=== PATIENT | female | born 2000 | race Caucasian/White ===

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

== ENCOUNTER → 2022-10-03 | Outpatient (CLI) | payer OTHER ==
--- NOTE | 2022-10-03 16:30 | US ---
EXAMINATION TYPE: Transabdominal DATE OF EXAM: 10/03/2022 1:48 PM COMPARISON: 04/14/2020 CLINICAL INDICATION: Female, 22 years old with history of Z36.89 CONFIRM DATES; early OB, dates, EXAM PERFORMED: OBTA EXAM MEASUREMENTS: GESTATIONAL AGE / DATING Physician Established: Not yet established Dates by LMP: ( 9 weeks/2 days) EDC: 05/06/2023 Dates by First Scan: No previous this is first scan Dates by Current Scan for: (9 weeks/4 days) EDC: 05/04/2023 MATERNAL ANATOMY Uterus: 10.5 x 6.9 x 6.0cm Right Ovary: 2.7 x 2.5 x 1.4cm Left Ovary: 2.5 x 2.6 x 1.7cm Post CDS / Adnexa: wnl Presence of free fluid: no Presence of corpus luteal cyst: not seen Presence of subchorionic bleed: no GESTATION / SURVEY CRL: 2.7cm (9 weeks/4 days) MSD: wnl Yolk Sac (normal less than 6mm): 0.4cm Heart Rate: 158 bpm Rhythm: Normal IUP: Viable IUP Date of LMP: 07/30/2022 Beta HcG (if available): not available IMPRESSION: Single live intrauterine gestation with ultrasound age 9 weeks 4 days.
== END | disposition home or self-care (01) ==
LOC: RADUSWWP 13:31
PROVIDERS: ATTEND Obstetrics & Gynecology
DX: Z36.89 Encounter for other specified antenatal screening (principal); Z3A.09 9 weeks gestation of pregnancy
CPT/HCPCS: 76801

== ENCOUNTER 2023-02-18 00:55 | Outpatient (CLI) | payer OTHER ==
[2023-02-18 01:55] LABS: Appearance,Urine Turbid (Clear); Bacteria,Urine Few /hpf; Bilirubin,Urine Negative (Negative); Blood,Urine Negative (Negative); Color,Urine Yellow; Glucose,Urine (UA) Negative (Negative); Ketones,Urine 1+ (Negative); Leukocyte Esterase,Urine Large (Negative); Mucus,Urine Many /hpf; Nitrite,Urine Negative (Negative); Protein,Urine 1+ (Negative); RBC,Urine 6 /hpf (0-5); Specific Gravity,Urine 1.028 (1.001-1.035); Squamous Epithelial Cell,Urine 32 /hpf (0-4); WBC,Urine 43 /hpf (0-5)
[2023-02-18] MEDS ORDERED: LACTATED RINGERS 1,000 ML IV SCH (02:15)
--- NOTE | 2023-02-18 10:28 | P.MSEPDOC ---
Presenting Problems - Arrival Data Date of Arrival on Unit: 02/18/23 Time of Arrival on Unit: 00:55 Mode of Transport: Ambulatory - Complaint OB-Reason for Admission/Chief Complaint: Pain Comment: pt of Dr. Salas, , 29 weeks and 1 day. Presents for abdominal cramping since 2300 tonight. States she was up walking and shopping most of the day and has only drank about 3/4 of a water bottle today. Concentrated urine with sediment collected. Cat 1 tracing, reactive NST. No cx palpated or per toco. Medical History - Information : 2 Para: 1 Term: 1 : 0 Abortions: Spontaneous or Elective: 0 Number of Living Children: 1 - Gestational Age Gestational Age by GREGORY (wks/days): 29 Weeks and 0 Days Review of Systems - Review of Systems Constitutional: No problems Breast: No problems ENT: No problems Cardiovascular: No problems Respiratory: No problems Gastrointestinal: No problems Genitourinary: No problems Musculoskeletal: No problems Neurological: No problems Skin: No problems Vital Signs - Temperature Temperature: 97.5 F Temperature Source: Temporal Artery Scan - Pulse Pulse Oximetery Pulse Rate: 68 Pulse Assessment Method: Automatic Cuff - Respirations Respiratory Rate: 18 Oxygen Delivery Method: Room Air O2 Sat by Pulse Oximetry: 100 - Blood Pressure Right Arm Blood Pressure: 117/57 Blood Pressure Mean: 77 Blood Pressure Source: Automatic Cuff Medical Screen Scoring - Assessment - Baby A Baseline FHR: 140 Heart Rate - NICHD Category: Category I (Normal) NST: Reactive Physician Notification - Physician Notified Physician Notified Date: 02/18/23 Physician Notified Time: 01:34 Physician: Lauryn Campuzano New Order Received: Yes - Notification Comment Comment: Spoke with Dr. Campuzano, pt of Dr. Salas, , 29 weeks and 1 day. Presents for abdominal cramping since 2300 tonight. States she was up walking and shopping most of the day and has only drank about 3/4 of a water bottle today. Concentrated urine with sediment collected. Cat 1 tracing, reactive NST. No cx palpated or per toco. Orders to send UA, orally hydrate, collect FFN and check. May dispose of FFN if cervix closed. RN to call back if UTI. Rn returned call, discussed UA results and cervix closed. ORder for IV fluid and 2g IV kefzol. will order PO abx to pt prefered pharmacy Maternal Triage Index - Maternal Triage Index Presenting for scheduled procedure w/no complaint: No - Stat/Priority 1 Stat Priority 1: No - Urgent/Priority 2 Urgent Priority 2: No - Prompt/Priority 3 Prompt Priority 3: Yes Criteria Met for Priority 3: pt of Dr. Salas, , 29 weeks and 1 day. P resents for abdominal cramping since 2300 tonight. States she was up walking and shopping most of the day and has only drank about 3/4 of a water bottle today. Concentrated urine with sediment collected. Cat 1 tracing, reactive NST. No cx palpated or per toco. Disposition - Disposition OB Disposition: Triage, Discharge to home Discharge Date: 02/18/23 Discharge Time: 03:25 I agree with the RN Medical Screening Exam: Yes Case reviewed; plan agreed upon as documented in EMR&OBIX.: Yes Diagnosis: URINARY TRACT INFECTION, SITE NOT SPECIFIED Additional Diagnoses: Dehydration
[2023-02-20 00:29] VITALS: BP 117/57; PULSE 68; RESP 18; TEMP 97.5
== END 2023-02-18 03:25 ==
LOC: FBPOP 00:55
PROVIDERS: ATTEND Obstetrics & Gynecology
DX: O23.43 Unspecified infection of urinary tract in pregnancy, third trimester (principal); Z3A.29 29 weeks gestation of pregnancy
CPT/HCPCS: 59025; 96360; 96367; 81001; 87086; G0463; J0690; 99214

== ENCOUNTER → 2023-04-07 | Outpatient (CLI) | payer OTHER ==
--- NOTE | 2023-04-10 10:53 | US ---
EXAMINATION TYPE: US OB >= 14 wk fetus DATE OF EXAM: 04/07/2023 COMPARISON: 10/03/2022 CLINICAL INDICATION: Female, 23 years old with history of O36.63X0 MATERNAL CARE FOR EXCESS HANSA WTH, TH; Growth TECHNIQUE: Transabdominal (TA) GESTATIONAL AGE / DATING Physician Established: (35 weeks/6 days) EDC: 05/06/2023 Dates by LMP: (35 weeks/6 days) EDC: 05/06/2023 Dates by First Scan: (36 weeks/1 days) EDC: 05/04/2023 Dates by Current Scan: (37 weeks/1 days) (one week more growth than expected compared to 10/03/2022) EDC: 04/27/2023 SURVEY IUP: Single PLACENTA: Anterior, calcifications and venous lakes noted PREVIA: No Previa GALILEA: 13.5 cm Normal CERVICAL LENGTH (transabdominal: norm > 3.0cm): 3.6 cm BIOMETRY PRESENTATION: Vertex BPD: 9.4 cm 38 weeks / 1 days HC: 34.3 cm 39 weeks / 4 days AC: 33.4 cm 37 weeks / 2 days FL: 7.0 cm 36 weeks / 0 days ESTIMATED WEIGHT IN GRAMS: 3186 grams ESTIMATED WEIGHT IN LBS/OZ: 7 lbs. 0 oz. WEIGHT PERCENTAGE BASED ON ESTABLISHED DATES: 87% HC/AC: 1.03 Normal FL/AC: 21 Normal HEART RATE: 123 bpm RHYTHM: Normal Strip Cleaner notes:Single, viable IUP/ Growth as above IMPRESSION: 1. Single live injured in with established gestational age of 35 weeks 6 days by LMP. Ultra sound biometry is concordant at 37 weeks 1 day (one week more than expected compared to 10/03/2022) jj cing the child at the 87th percentile for weight. 2. anatomy not assessed.
== END | disposition home or self-care (01) ==
LOC: RADUSWWP 16:33
PROVIDERS: ATTEND Obstetrics & Gynecology
DX: O36.63X0 Maternal care for excessive fetal growth, third trimester, not applicable or unspecified (principal); Z3A.36 36 weeks gestation of pregnancy
CPT/HCPCS: 76805

== ENCOUNTER 2023-04-25 13:54 | Outpatient (CLI) | payer OTHER ==
[2023-04-25 14:42] LABS: Appearance,Urine Cloudy (Clear); Bacteria,Urine Occasional /hpf; Bilirubin,Urine Negative (Negative); Blood,Urine Negative (Negative); Color,Urine Yellow; Glucose,Urine (UA) Negative (Negative); Ketones,Urine Negative (Negative); Leukocyte Esterase,Urine Large (Negative); Mucus,Urine Few /hpf; Nitrite,Urine Negative (Negative); Protein,Urine 1+ (Negative); RBC,Urine 5 /hpf (0-5); Specific Gravity,Urine 1.017 (1.001-1.035); Squamous Epithelial Cell,Urine 42 /hpf (0-4); Urobilinogen,Urine <2.0 mg/dL (<2.0); WBC,Urine 48 /hpf (0-5)
[2023-04-25 16:11] VITALS: BP 131/81; PULSE 77; RESP 17; TEMP 97.9
--- NOTE | 2023-06-27 08:19 | P.MSEPDOC ---
Presenting Problems - Arrival Data Date of Arrival on Unit: 04/25/23 Time of Arrival on Unit: 13:54 Mode of Transport: Ambulatory - Complaint OB-Reason for Admission/Chief Complaint: Pain Comment: pt presents to triage for lower back pain and pelvic pressure and tighening Medical History - Information : 2 Para: 1 Term: 1 : 0 Abortions: Spontaneous or Elective: 0 Number of Living Children: 1 - Gestational Age Gestational Age by GREGORY (wks/days): 38 Weeks and 3 Days Review of Systems - Review of Systems Constitutional: No problems Breast: No problems ENT: No problems Cardiovascular: No problems Respiratory: No problems Gastrointestinal: No problems Genitourinary: No problems Musculoskeletal: No problems Neurological: No problems Skin: No problems Vital Signs - Temperature Temperature: 97.9 F Temperature Source: Temporal Artery Scan - Pulse Right Brachial Pulse Rate: 77 Pulse Assessment Method: Automatic Cuff - Respirations Respiratory Rate: 17 Oxygen Delivery Method: Room Air - Blood Pressure Right Arm Blood Pressure: 131/81 Blood Pressure Mean: 97 Blood Pressure Source: Automatic Cuff Medical Screen Scoring - Cervical Exam Dilation (cm): 3 Effacement (%): 70 Station: -3 Membranes: Intact - Uterine Contractions Intensity: Mild Resting: Soft to palpation - Assessment - Baby A Baseline FHR: 140 Heart Rate - NICHD Category: Category I (Normal) NST: Reactive Physician Notification - Physician Notified Physician Notified Date: 04/25/23 Physician Notified Time: 14:18 Physician: Rocio Salas Order Received: Yes - Notification Comment Comment: no cervical change in an hour, reactive nst, UA and culture sent, pt discharged with follow up in office on this week Maternal Triage Index - Maternal Triage Index Presenting for scheduled procedure w/no complaint: No - Stat/Priority 1 Stat Priority 1: No - Urgent/Priority 2 Urgent Priority 2: No - Prompt/Priority 3 Prompt Priority 3: Yes Criteria Met for Priority 3: pt presents to triage for lower back pain and pelvic pressure and tighening Disposition - Disposition OB Disposition: Triage, Discharge to home, Written follow up instructions reviewed Discharge Date: 04/25/23 Discharge Time: 15:09 I agree with the RN Medical Screening Exam: Yes Case reviewed; plan agreed upon as documented in EMR&OBIX.: Yes Diagnosis: LOW BACK PAIN, UNSPECIFIED
== END 2023-04-25 15:09 | disposition home or self-care (01) ==
LOC: FBPOP 13:54
PROVIDERS: ATTEND Obstetrics & Gynecology
DX: Z53.9 Procedure and treatment not carried out, unspecified reason (principal)
CPT/HCPCS: 59025; 81001; 87086; G0463; 99213

== ENCOUNTER 2023-04-26 15:12 | Outpatient (CLI) | payer OTHER ==
[2023-04-26 16:56] VITALS: BP 138/94; PULSE 73; RESP 16; TEMP 97.5
--- NOTE | 2023-06-27 08:18 | P.MSEPDOC ---
Presenting Problems - Arrival Data Date of Arrival on Unit: 04/26/23 Time of Arrival on Unit: 15:19 Mode of Transport: Ambulatory - Complaint OB-Reason for Admission/Chief Complaint: Possible Onset of Labor Medical History - Information : 2 Para: 1 Number of Living Children: 1 - Gestational Age Gestational Age by GREGORY (wks/days): 38 Weeks and 4 Days Review of Systems - Review of Systems Constitutional: No problems Breast: No problems ENT: No problems Cardiovascular: No problems Respiratory: No problems Gastrointestinal: No problems Genitourinary: No problems Musculoskeletal: No problems Neurological: No problems Skin: No problems Vital Signs - Temperature Temperature: 97.5 F Temperature Source: Axillary - Pulse Right Sitting Brachial Pulse Rate: 73 Pulse Assessment Method: Automatic Cuff - Respirations Respiratory Rate: 16 Oxygen Delivery Method: Room Air O2 Sat by Pulse Oximetry: 99 - Blood Pressure Right Arm Sitting Blood Pressure: 138/94 Blood Pressure Mean: 108 Blood Pressure Source: Automatic Cuff Medical Screen Scoring - Cervical Exam Dilation (cm): 4 Effacement (%): 80 Station: -2 Membranes: Intact - Uterine Contractions Frequency From (mins): 5 Frequency To (mins): 10 Duration From (seconds): 60 Duration To (seconds): 80 Intensity: Moderate Resting: Soft to palpation - Assessment - Baby A Baseline FHR: 130 Heart Rate - NICHD Category: Category I (Normal) NST: Reactive Physician Notification - Physician Notified Physician Notified Date: 04/26/23 Physician Notified Time: 16:40 Physician: Jeff Ch New Order Received: Yes - Notification Comment Comment: discharge Maternal Triage Index - Maternal Triage Index Presenting for scheduled procedure w/no complaint: No - Stat/Priority 1 Stat Priority 1: No - Urgent/Priority 2 Urgent Priority 2: No - Prompt/Priority 3 Prompt Priority 3: No - Non-Urgent/Priority 4 Non-Urgent Priority 4: Yes Criteria Met for Priority 4: 38 weeks, contractions Disposition - Disposition OB Disposition: Discharge to home Discharge Date: 04/26/23 Discharge Time: 16:42 I agree with the RN Medical Screening Exam: Yes Case reviewed; plan agreed upon as documented in EMR&OBIX.: Yes Diagnosis: FALSE LABOR AT OR AFTER 37 COMPLETED WEEKS OF GESTATION
== END 2023-04-26 16:42 | disposition home or self-care (01) ==
LOC: FBPOP 15:12
PROVIDERS: ATTEND Obstetrics & Gynecology
DX: O47.1 False labor at or after 37 completed weeks of gestation (principal); Z3A.38 38 weeks gestation of pregnancy
CPT/HCPCS: 59025; G0463; 99213

== ENCOUNTER 2024-05-11 16:14 | Emergency (ER) | payer OTHER ==
--- NOTE | 2024-05-11 17:51 | ED ---
Psych HPI - General Chief Complaint: Psychiatric Symptoms Stated Complaint: Mental health Time Seen by Provider: 05/11/24 17:45 Source: patient, family, RN notes reviewed, old records reviewed Mode of arrival: ambulatory - History of Present Illness Initial Comments: This is a 24-year-old female presents with boyfriend today. Significant other in response for depression, situational depression with recent increase in stress. No current drugs or alcohol, patient does have prior inpatient psychiatric evaluation in the hospital for depression and mood disorder. MD Complaint: feels depressed -: hour(s) Associated Psychiatric Symptoms: depression History of same: Yes Quality: constant Improves With: none Worsens With: none Associated Symptoms: denies other symptoms Treatments Prior to Arrival: placed on mental health hold - Related Data Home Medications Medication Instructions Recorded Confirmed ALPRAZolam [Xanax] 0.25 mg PO DAILY PRN 05/11/24 05/11/24 Sertraline [Zoloft] 150 mg PO DAILY 05/11/24 05/11/24 Allergies Allergy/AdvReac Type Severity Reaction Status Date / Time No Known Allergies Allergy Verified 05/11/24 19:52 Review of Systems ROS Statement: Those systems with pertinent positive or pertinent negative responses have been documented in the HPI. ROS Other: All systems not noted in ROS Statement are negative. Past Medical History Past Medical History: No Reported History Additional Past Medical History / Comment(s): Patient's had 1 previous vaginal delivery of baby girl 8 lbs. 1 oz. History of Any Multi-Drug Resistant Organisms: None Reported Past Surgical History: No Surgical Hx Reported Additional Past Surgical History / Comment(s): [place] teeth. Past Psychological History: Anxiety, Bipolar, Depression Smoking Status: Never smoker Past Alcohol Use History: None Reported Past Drug Use History: None Reported - Past Family History Mother Family Medical History: No Reported History General Exam Limitations: no limitations General appearance: alert, in no apparent distress Head exam: Present: atraumatic, normocephalic, normal inspection Eye exam: Present: normal appearance, PERRL, EOMI. Absent: scleral icterus, conjunctival injection, periorbital swelling ENT exam: Present: normal exam, mucous membranes moist Neck exam: Present: normal inspection. Absent: tenderness, meningismus, lymphadenopathy Respiratory exam: Present: normal lung sounds bilaterally. Absent: respiratory distress, wheezes, rales, rhonchi, stridor Cardiovascular Exam: Present: regular rate, normal rhythm, normal heart sounds. Absent: systolic murmur, diastolic murmur, rubs, gallop, clicks GI/Abdominal exam: Present: soft, normal bowel sounds. Absent: distended, tenderness, guarding, rebound, rigid Extremities exam: Present: normal inspection, full ROM, normal capillary refill. Absent: tenderness, pedal edema, joint swelling, calf tenderness Back exam: Present: normal inspection Neurological exam: Present: alert, oriented X3, CN II-XII intact Psychiatric exam: Present: normal affect, normal mood Skin exam: Present: warm, dry, intact, normal color. Absent: rash Course Vital Signs 05/11/24 05/11/24 16:54 20:20 Temperature 97.9 F 97.6 F Pulse Rate 67 77 Respiratory 20 17 Rate Blood Pressure 132/82 112/74 O2 Sat by Pulse 98 100 Oximetry - Reevaluation(s) Reevaluation #1: Medical records reviewed Reevaluation #2: Medically clear for psychiatric evaluation Reevaluation #3: Was pt. sent in by a medical professional or institution (, PA, CRIME ANALYST, urgent care, hospital, or shelter...) When possible be specific @ -no Did you speak to anyone other than the patient for history (EMS, parent, family, police, friend...)? What history was obtained from this source @ -no Did you review nursing and triage notes (agree or disagree)? Why? @ -agree Are old charts reviewed (outside hosp., previous admission, EMS record, old EKG, old radiological studies, urgent care reports/EKG's, shelter records)? Report findings @ -yes Differential Diagnosis (chest pain, altered mental status, abdominal pain women, abdominal pain men, vaginal bleeding, weakness, fever, dyspnea, syncope, headache, dizziness, GI bleed, back pain, seizure, CVA, palpatations, mental health, musculoskeletal)? @ -prior EKG interpreted by me (3pts min.). @ -yes X-rays interpreted by me (1pt min.). @ -yes negative for acute disease CT interpreted by me (1pt min.). @ -no U/S interpreted by me (1pt. min.). @ -no What testing was considered but not performed or refused? (CT, X-rays, U/S, labs)? Why? @ -none What meds were considered but not given or refused? Why? @ -none Did you discuss the management of the patient with other professionals (professionals i.e. , PA, CRIME ANALYST, lab, RT, psych nurse, administrator social welfare, design manager, teacher, officer captain, vocational case manager)? Give summary @ -no Was smoking cessation discussed for >3mins.? @ -no Was critical care preformed (if so, how long)? @ -no Were there social determinants of health that impacted care today? How? (Homele ssness, low income, unemployed, alcoholism, drug addiction, transportation, low edu. Level, literacy, decrease access to med. care, intermediate, rehab)? @ -none Was there de-escalation of care discussed even if they declined (Discuss DNR or withdrawal of care, Hospice)? DNR status @ -no What co-morbidities impacted this encounter? (DM, HTN, Smoking, COPD, CAD, Cancer, CVA, ARF, Chemo, Hep., AIDS, mental health diagnosis, sleep apnea, morbid obesity)? @ -none Was patient admitted / discharged? Hospital course, mention meds given and route, prescriptions, significant lab abnormalities, going to OR and other pertinent info. @ - Undiagnosed new problem with uncertain prognosis? @ -no Drug Therapy requiring intensive monitoring for toxicity (Heparin, Nitro, Insulin, Cardizem)? @ -no Were any procedures done? @ -no Diagnosis/symptom? @ - Acute, or Chronic, or Acute on Chronic? @ -Acute Uncomplicated (without systemic symptoms) or Complicated (systemic symptoms)? @ -Complicated Side effects of treatment? @ -no Exacerbation, Progression, or Severe Exacerbation? @ -exacerbation Poses a threat to life or bodily function? How? (Chest pain, [place], [place], pneumonia, PE, COPD, DKA, ARF, appy, cholecystitis, CVA, Diverticulitis, Homicidal, Suicidal, threat to staff... and all critical care pts) @ -yes Reevaluation #4: Differential Mental Health Depression, anxiety, bipolar, psychosis, schizophrenia, borderline personality, situational depression, adjustment disorder, behavioral disorder, brain tumor, malingering, substance abuse, encephalopathy, medication reaction, dementia, hypothyroidism, degenerative neurologic disorder, lupus.... This is not meant to be all-inclusive list Medical Decision Making - Medical Decision Making 24 female was seen evaluate psychiatry here in the ER is okay for discharge home Disposition Clinical Impression: Depression Disposition: HOME SELF-CARE Condition: Fair Instructions (If sedation given, give patient instructions): Depression (ED) Is patient prescribed a controlled substance at d/c from ED?: No Referrals: Cristy Elmore PAC [REFERRING] - 1-2 days
[2024-05-11 20:21] VITALS: BP 112/74; PULSE 77; RESP 17; TEMP 97.6
== END 2024-05-11 20:22 | disposition home or self-care (01) ==
LOC: EC 16:14
DX: F32.A Depression, unspecified (principal)
CPT/HCPCS: 82075; 99284

== ENCOUNTER 2024-05-23 15:21 | Inpatient (IN) | payer MEDICAID, OTHER ==
--- NOTE | 2024-05-23 16:57 | ED ---
General Adult HPI - General Chief complaint: Psychiatric Symptoms Stated complaint: mental health Time Seen by Provider: 05/23/24 16:30 Source: patient, RN notes reviewed Mode of arrival: ambulatory Limitations: no limitations - History of Present Illness Initial comments: 24-year-old female presents to the emergency department for evaluation of suicidal ideation. Patient reports that last night she started feeling down and that she was feeling suicidal. She notes that she laid in bed all day. She states that she had her medications next to her on the nightstand that she was planning to take. Sister came to her house as support. She had a therapy appointment today and was advised to come to the emergency department. She does report a prior history of depression and takes Zoloft. She also has as needed Xanax. She has never been hospitalized for her mental health. Denies any homicidal thoughts. - Related Data Home Medications Medication Instructions Recorded Confirmed ALPRAZolam [Xanax] 0.25 mg PO DAILY PRN 05/11/24 05/23/24 Sertraline [Zoloft] 150 mg PO DAILY 05/11/24 05/23/24 Ondansetron Odt [Zofran Odt] 8 mg PO TID PRN 05/23/24 05/23/24 Allergies Allergy/AdvReac Type Severity Reaction Status Date / Time No Known Allergies Allergy Verified 05/23/24 17:15 Review of Systems ROS Statement: Those systems with pertinent positive or pertinent negative responses have been documented in the HPI. ROS Other: All systems not noted in ROS Statement are negative. Past Medical History Past Medical History: No Reported History Additional Past Medical History / Comment(s): Patient's had 1 previous vaginal delivery of baby girl 8 lbs. 1 oz. History of Any Multi-Drug Resistant Organisms: None Reported Past Surgical History: No Surgical Hx Reported Additional Past Surgical History / Comment(s): Colora teeth. Past Psychological History: Anxiety, Bipolar, Depression Smoking Status: Never smoker Past Alcohol Use History: None Reported Past Drug Use History: None Reported - Past Family History Mother Family Medical History: No Reported History General Exam Limitations: no limitations General appearance: alert, in no apparent distress, other (Tearful) Head exam: Present: atraumatic, normocephalic, normal inspection Eye exam: Present: normal appearance, PERRL, EOMI. Absent: scleral icterus, conjunctival injection, periorbital swelling ENT exam: Present: normal exam, mucous membranes moist Respiratory exam: Present: normal lung sounds bilaterally. Absent: respiratory distress, wheezes, rales, rhonchi, stridor Cardiovascular Exam: Present: regular rate, normal rhythm, normal heart sounds. Absent: systolic murmur, diastolic murmur, rubs, gallop, clicks GI/Abdominal exam: Present: soft. Absent: distended, tenderness, guarding, rebound, rigid Extremities exam: Present: normal inspection, full ROM, normal capillary refill. Absent: tenderness, pedal edema, joint swelling, calf tenderness Neurological exam: Present: alert, oriented X3 Psychiatric exam: Present: suicidal ideation Skin exam: Present: warm, dry, intact, normal color. Absent: rash Course Vital Signs 05/23/24 16:10 Temperature 98.4 F Pulse Rate 106 H Respiratory 17 Rate Blood Pressure 113/77 O2 Sat by Pulse 100 Oximetry Medical Decision Making - Medical Decision Making Was pt. sent in by a medical professional or institution (, PA, CUSTOMER MARKETING MANAGER, urgent care, hospital, or [facility]...) When possible be specific @ -No Did you speak to anyone other than the patient for history (EMS, parent, family, police, friend...)? What history was obtained from this source @ -No Did you review nursing and triage notes (agree or disagree)? Why? @ -I reviewed and agree with nursing and triage notes Were old charts reviewed (outside hosp., previous admission, EMS record, old EKG, old radiological studies, urgent care reports/EKG's, [facility] records)? Report findings @ -No old charts were reviewed Differential Diagnosis (chest pain, altered mental status, abdominal pain women, abdominal pain men, vaginal bleeding, weakness, fever, dyspnea, syncope, headache, dizziness, GI bleed, back pain, seizure, CVA, palpatations, mental health, musculoskeletal)? @ -Differential Mental Health Depression, anxiety, bipolar, psychosis, schizophrenia, borderline personality, situational depression, adjustment disorder, behavioral disorder, brain tumor, malingering, substance abuse, encephalopathy, medication reaction, dementia, hypothyroidism, degenerative neurologic disorder, lupus.... This is not meant to be all-inclusive list EKG interpreted by me (3pts min.). @ -None X-rays interpreted by me (1pt min.). @ -None done CT interpreted by me (1pt min.). @ -None done U/S interpreted by me (1pt. min.). @ -None done What testing was considered but not performed or refused? (CT, X-rays, U/S, labs)? Why? @ -None What meds were considered but not given or refused? Why? @ -None Did you discuss the management of the patient with other professionals (professionals i.e. DrJohn, PA, CUSTOMER MARKETING MANAGER, lab, RT, psych nurse, social problems specialist, tobacco grader, teacher, executive vice president and chief operating officer, mattress spring encaser)? Give summary @ -Management discussed with EPS who recommends inpatient mental health treatment Was smoking cessation discussed for >3mins.? @ -No Was critical care preformed (if so, how long)? @ -No Were there social determinants of health that impacted care today? How? (Homelessness, low income, unemployed, alcoholism, drug addiction, transportation, low edu. Level, literacy, decrease access to med. care, correction, rehab)? @ -No Was there de-escalation of care discussed even if they declined (Discuss DNR or withdrawal of care, Hospice)? DNR status @ -No What co-morbidities impacted this encounter? (DM, HTN, Smoking, COPD, CAD, Cancer, CVA, ARF, Chemo, Hep., AIDS, mental health diagnosis, sleep apnea, morbid obesity)? @ -Depression Was patient admitted / discharged? Hospital course, mention meds given and route, prescriptions, significant lab abnormalities, going to OR and other pertinent info. @ -Admitted. Patient presented the emergency department for evaluation of suicidal ideation. She does report a plan. I evaluated the patient and she was medically cleared for EPS evaluation. EPS evaluated the patient and inpatient treatment was recommended. Patient will be admitted to the mental health floor. She is understanding agreeable with this. Case discussed with Dr. Umanzor. Undiagnosed new problem with uncertain prognosis? @ -No Drug Therapy requiring intensive monitoring for toxicity (Heparin, Nitro, Insulin, Cardizem)? @ -No Were any procedures done? @ -No Diagnosis/symptom? @ -Suicidal ideation Acute, or Chronic, or Acute on Chronic? @ -Acute Uncomplicated (without systemic symptoms) or Complicated (systemic symptoms)? @ -complicated Side effects of treatment? @ -No Exacerbation, Progression, or Severe Exacerbation? @ -Exacerbation Poses a threat to life or bodily function? How? (Chest pain, [place], VA, pneumonia, PE, COPD, DKA, ARF, appy, cholecystitis, CVA, Diverticulitis, Homicidal, Suicidal, threat to staff... and all critical care pts) @ -Yes suicidal - Lab Data Lab Results 05/23/24 Range/Units 16:30 Urine Opiates Screen Not Detected (NotDetected) Ur Oxycodone Screen Not Detected (NotDetected) Urine Methadone Screen Not Detected (NotDetected) Ur Barbiturates Screen Not Detected (NotDetected) U Tricyclic Antidepress Not Detected (NotDetected) Ur Phencyclidine Scrn Not Detected (NotDetected) Ur Amphetamines Screen Not Detected (NotDetected) U Methamphetamines Scrn Not Detected (NotDetected) U Benzodiazepines Scrn Detected H (NotDetected) Urine Cocaine Screen Not Detected (NotDetected) U Marijuana (THC) Screen Not Detected (NotDetected) Disposition Clinical Impression: Suicidal ideation Disposition: TRANSFER TO PSYCH HOSP/UNIT Is patient prescribed a controlled substance at d/c from ED?: No Referrals: Chip Reid MD [Primary Care Provider] - 1-2 days
[2024-05-23 17:24] LABS: Amphetamine Screen,Urine Not Detected (NotDetected); Barbiturate Screen,Urine Not Detected (NotDetected); Benzodiazepines Screen,Urine Detected (NotDetected); Cocaine Screen,Urine Not Detected (NotDetected); Methadone Screen, Urine Not Detected (NotDetected); Opiate Screen,Urine Not Detected (NotDetected); Oxycodone Screen, Urine Not Detected (NotDetected); Phencyclidine Screen,Urine Not Detected (NotDetected); Tricyclic Antidepressant,Urine Not Detected (NotDetected); Urn Cannabinoid Scrn Not Detected (NotDetected)
[2024-05-23] MEDS ORDERED: MAGNESIUM HYDROXIDE 2,400 MG/30 ML CUP PO PRN (19:36)
[2024-05-23] MEDS ORDERED: IBUPROFEN 600 MG TAB PO PRN (19:36)
[2024-05-23] MEDS ORDERED: ACETAMINOPHEN TAB 325 MG TAB PO PRN (19:36)
[2024-05-23] MEDS ORDERED: MAG HYDROX/AL HYDROX/SIMETH 355 ML BOTTLE PO PRN (19:36)
[2024-05-23] MEDS ORDERED: haloperidoL 5 MG TAB PO PRN (19:38)
[2024-05-23] MEDS ORDERED: LORazepam 2 MG/ML INJ IM PRN (19:38)
[2024-05-23] MEDS ORDERED: HALOPERIDOL LACTATE 5 MG/ML 1 ML VIAL IM PRN (19:38)
[2024-05-23] MEDS ORDERED: LORazepam 1 MG TAB PO PRN (19:38)
[2024-05-23] MEDS: SERTRALINE 100 MG TAB PO SCH (21:23)
[2024-05-23 22:42] LABS: Appearance,Urine Turbid (Clear); Bilirubin,Urine Negative (Negative); Blood,Urine Negative (Negative); Color,Urine Yellow; Glucose,Urine (UA) Negative (Negative); Ketones,Urine Negative (Negative); Leukocyte Esterase,Urine Large (Negative); Mucus,Urine Many /hpf; Nitrite,Urine Negative (Negative); PH, Urine 5.5 (5.0-8.0); Protein,Urine Trace (Negative); Specific Gravity,Urine 1.028 (1.001-1.035); Squamous Epithelial Cell,Urine 2 /hpf (0-4); Urobilinogen,Urine <2.0 mg/dL (<2.0); WBC,Urine 13 /hpf (0-5)
[2024-05-24 09:01] LABS: Basophils % (A) 0 %; Eosinophils % (A) 1 %; HCT 39.1 % (34.0-46.0); HGB 12.3 gm/dL (11.4-16.0); Hypochromasia Slight; Lymphocytes # (A) 1.6 k/uL (1.0-4.8); Lymphocytes % (A) 25 %; MCH 27.4 pg (25.0-35.0); MCHC 31.5 g/dL (31.0-37.0); MCV 86.9 fL (80.0-100.0); Mean Platelet Volume 7.8; Monocytes # (A) 0.3 k/uL (0-1.0); Monocytes % (A) 4 %; Neutrophils # (A) 4.5 k/uL (1.3-7.7); Neutrophils % (A) 69 %; Platelet Count 331 k/uL (150-450); RDW 13.5 % (11.5-15.5); WBC 6.5 k/uL (3.8-10.6)
[2024-05-24 09:14] LABS: ALT 16 U/L (4-34); AST 20 U/L (14-36); African American GFR (CKD) >90 (>60 ml/min/1.73 sqM); Albumin 4.7 g/dL (3.5-5.0); Alkaline Phosphatase 76 U/L (38-126); Anion Gap 10 mmol/L; Blood Urea Nitrogen 17 mg/dL (7-17); Calcium 9.6 mg/dL (8.4-10.2); Carbon Dioxide 28 mmol/L (22-30); Chloride 101 mmol/L (98-107); Glucose 92 mg/dL (74-99); Non-African American GFR(CKD) >90 (>60 ml/min/1.73 sqM); Potassium 4.4 mmol/L (3.5-5.1); Sodium 139 mmol/L (137-145); Total Bilirubin 0.7 mg/dL (0.2-1.3)
[2024-05-24] MEDS: NICOTINE 14MG/24HR PATCH TRANSDERM SCH (09:27)
--- NOTE | 2024-05-24 12:48 | P.HP ---
Psychiatric H&P - . H&P Date: 05/24/24 History & Physical: Allergies Allergy/AdvReac Type Severity Reaction Status Date / Time No Known Allergies Allergy Verified 05/23/24 17:15 Vital Signs Temp 97.4 F L 05/24/24 09:00 Pulse 96 05/24/24 09:00 Resp 16 05/23/24 21:05 BP 120/78 05/24/24 09:00 Pulse Ox 98 05/24/24 09:00 FiO2 Intake & Output 05/23/24 05/24/24 05/24/24 18:59 06:59 18:59 Weight 76.204 kg 75.495 kg Laboratory Last Values WBC 6.5 k/uL (3.8-10.6) 05/24/24 08:13 RBC 4.50 m/uL (3.80-5.40) 05/24/24 08:13 Hgb 12.3 gm/dL (11.4-16.0) 05/24/24 08:13 Hct 39.1 % (34.0-46.0) 05/24/24 08:13 MCV 86.9 fL (80.0-100.0) 05/24/24 08:13 MCH 27.4 pg (25.0-35.0) 05/24/24 08:13 MCHC 31.5 g/dL (31.0-37.0) 05/24/24 08:13 RDW 13.5 % (11.5-15.5) 05/24/24 08:13 Plt Count 331 k/uL (150-450) 05/24/24 08:13 MPV 7.8 05/24/24 08:13 Neutrophils % 69 % 05/24/24 08:13 Lymphocytes % 25 % 05/24/24 08:13 Monocytes % 4 % 05/24/24 08:13 Eosinophils % 1 % 05/24/24 08:13 Basophils % 0 % 05/24/24 08:13 Neutrophils # 4.5 k/uL (1.3-7.7) 05/24/24 08:13 Lymphocytes # 1.6 k/uL (1.0-4.8) 05/24/24 08:13 Monocytes # 0.3 k/uL (0-1.0) 05/24/24 08:13 Eosinophils # 0.0 k/uL (0-0.7) 05/24/24 08:13 Basophils # 0.0 k/uL (0-0.2) 05/24/24 08:13 Hypochromasia Slight 05/24/24 08:13 Sodium 139 mmol/L (137-145) 05/24/24 08:13 Potassium 4.4 mmol/L (3.5-5.1) 05/24/24 08:13 Chloride 101 mmol/L (98-107) 05/24/24 08:13 Carbon Dioxide 28 mmol/L (22-30) 05/24/24 08:13 Anion Gap 10 mmol/L 05/24/24 08:13 BUN 17 mg/dL (7-17) 05/24/24 08:13 Creatinine 0.79 mg/dL (0.52-1.04) 05/24/24 08:13 Est GFR (CKD-EPI)AfAm >90 (>60 ml/min/1.73 sqM) 05/24/24 08:13 Est GFR (CKD-EPI)NonAf >90 (>60 ml/min/1.73 sqM) 05/24/24 08:13 Glucose 92 mg/dL (74-99) 05/24/24 08:13 Calcium 9.6 mg/dL (8.4-10.2) 05/24/24 08:13 Total Bilirubin 0.7 mg/dL (0.2-1.3) 05/24/24 08:13 AST 20 U/L (14-36) 05/24/24 08:13 ALT 16 U/L (4-34) 05/24/24 08:13 Alkaline Phosphatase 76 U/L (38-126) 05/24/24 08:13 Total Protein 8.0 g/dL (6.3-8.2) 05/24/24 08:13 Albumin 4.7 g/dL (3.5-5.0) 05/24/24 08:13 TSH 3.570 mIU/L (0.465-4.680) 05/24/24 08:13 Urine Color Yellow 05/23/24 21:00 Urine Appearance Turbid (Clear) H 05/23/24 21:00 Urine pH 5.5 (5.0-8.0) 05/23/24 21:00 Ur Specific [place] 1.028 (1.001-1.035) 05/23/24 21:00 Urine Protein Trace (Negative) H 05/23/24 21:00 Urine Glucose (UA) Negative (Negative) 05/23/24 21:00 Urine Ketones Negative (Negative) 05/23/24 21:00 Urine Blood Negative (Negative) 05/23/24 21:00 Urine Nitrite Negative (Negative) 05/23/24 21:00 Urine Bilirubin Negative (Negative) 05/23/24 21:00 Urine Urobilinogen <2.0 mg/dL (<2.0) 05/23/24 21:00 Ur Leukocyte Esterase Large (Negative) H 05/23/24 21:00 Urine WBC 13 /hpf (0-5) H 05/23/24 21:00 Ur Squamous Epith Cells 2 /hpf (0-4) 05/23/24 21:00 Urine Mucus Many /hpf (None) H 05/23/24 21:00 Urine HCG, Qual Not Detected (Not Detectd) 05/23/24 21:00 Urine Opiates Screen Not Detected (NotDetected) 05/23/24 16:30 Ur Oxycodone Screen Not Detected (NotDetected) 05/23/24 16:30 Urine Methadone Screen Not Detected (NotDetected) 05/23/24 16:30 Ur Barbiturates Screen Not Detected (NotDetected) 05/23/24 16:30 U Tricyclic Antidepress Not Detected (NotDetected) 05/23/24 16:30 Ur Phencyclidine Scrn Not Detected (NotDetected) 05/23/24 16:30 Ur Amphetamines Screen Not Detected (NotDetected) 05/23/24 16:30 U Methamphetamines Scrn Not Detected (NotDetected) 05/23/24 16:30 U Benzodiazepines Scrn Detected (NotDetected) H 05/23/24 16:30 Urine Cocaine Screen Not Detected (NotDetected) 05/23/24 16:30 U Marijuana (THC) Screen Not Detected (NotDetected) 05/23/24 16:30 SARS-CoV-2 (PCR) Not Detected (Not Detectd) 05/23/24 18:13 05/24/24 11:41 IDENTIFYING DATA: Patient is a 24-year-old female, currently she has 2 kids she lives in a house she lives with her 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 Pt was tearful and spoke about how she wants to get better and doesn't want to feel angry. Pt spoke about her therapy and setting goals for this week and how she is reading a book that her doctor recommended. Pt states that she has struggled with "high highs and low lows" for years. She states that "I love my so much and then I hate him". Pts states that she has not been nice to him and she yells and screams at him and uses "low blows". He told her today that he is numb and over it all. This led to her making suicidal comments. They both spoke about the option of couples therapy. Pt denies any hx of suicide attempts and denies any plan, access, or intent. Pt was able to contract for safety. Pt is goal and future oriented. Pt DENIES HI, Hallucinations, or delusions. RN spoke with pt about the use of healthy coping skills and examples of that, pt was also provided with a list of coping skills. They deny access to any guns besides a pellet gun which they were informed to lock up. Pt denies substance use. 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 Pt states she is eating slightly more than normal, she is sleeping but feels tired, she is caring for her ADLS. 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 She sees a therapist once a week, a case packer monthly, and a prescriber every 2 months. Pt spoke about her prescriber offering the option of DBT. She states that she would be willing to do so. RN emailed [facility] treatment team and [facility] team for follow up tomorrow, 05/12/24. Pt is not a current harm to self or others. RN informed pt to return to the ER if her symptoms are worsen. F/U with [facility] recommended. 05/23/24: Upon assessment pt was tearful pt states that [facility] did reach out about starting a new group therapy but that does not start until June 06. She states that since the last ER visit she has had increased depression. Increased SI with now a plan to OD on her Zoloft. Pt states that she was googling how much zoloft would she have to take to . Pt feels now she is unable to be left alone and worries she will kill herself. She admits to increase in negative thoughts and being more labile the last few days. Pt is not eating much and not caring for her basic needs. She is sleeping okay. She mentioned that she was on Vrylar up until about Mar and since being off she has noticed her decline. She states that she takes her Zoloft daily. Pt states since 05/11/24 she has not drank any etoh. Unable to safety plan with pt. Pt is a risk to her self." Patient was seen today agreeable to speak to chart writer in the office. She claims that yesterday she "could not get out of bed" and states that she was feeling fairly depressed. Claims that she was having "crappy thoughts" and relayed that they were mainly thoughts of self-harm suicidal thoughts plan to overdose on her medications. Claims that she has had similar episodes in the past over 2 and half years ago after her child was born. Claims that she went to a therapist appointment and they told her to come to the hospital. States that the suicidal thoughts have been happening for the past couple of days, claims that she has been having increase in depression increase in anxiety. States that she was fairly tearful, did relay that she has episodes of mood changes and likely hypomanic episodes where she feels like she has a lot of energy does not need to sleep which typically last 2 to 3 days. She claims that her sleep is improving, appetite is fair. Patient denies any suicidal or homicidal ideations intent or plan. At this time patient denies any auditory or visual hallucinations. Patient denies any current flight of ideas racing thoughts and increased in goal directed behavior. Patient admits to using nicotine vape products. Denies any other recreational drug use PAST PSYCHIATRIC HISTORY: Patient has a history of anxiety, bipolar disorder, possible personality disorder. She claims that she is currently on Xanax as needed and Zoloft at nighttime. Claims that she was previously on Vraylar ho wever this was discontinued by her psychiatrist 3 weeks ago. Patient denies any previous psychiatric hospitalizations. States that she follows up with Dr. Aldana at [facility]. Patient denies any history of suicide attempts in the past. PMH: as per ER note ALLERGIES: as per EMR CHEMICAL DEPENDENCY HISTORY: as per HPI FAMILY PSYCHIATRIC/SUBSTANCE USE HISTORY: Denies SOCIAL HISTORY: Patient was born and raised in [facility] [facility]. Claims that she completed high school and did some college. States that she is she has 2 kids. 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 Denies any legal history. MENTAL STATUS EXAM: General Appearance: Patient appears to be has a nose ring, stated age is alert, directable, and attempts to cooperate. Patient appears to have fair hygiene and grooming. Behavior: Patient is seated without any agitated behavior. Attempts to cooperate Speech: Patient's speech is fluent and nonpressured. Mood/Affect: Patient reports their mood is depressed, affect is congruent and constricted. Suicidality/Homicidality: Patient denies having any homicidal ideation intent or plan. Denies any suicidal ideations intent or plan Perceptions: Patient denies any visual hallucinations and denies any auditory hallucinations Though content/process: There is no evidence of any delusional thought content and thought process is linear and goal-directed. Memory and concentration: AOX3, grossly intact for the purposes of this session. Can spell "WORLD" backwards Judgment and insight: Poor STRENGTHS/WEAKNESSES: strength is that patient is resilient. Weakness is that patient has home stressors. INTELLECT: Average IMPRESSIONS: bipolar disorder, current episode depressed Anxiety disorder unspecified Nicotine dependence PLAN: -Patient is admitted under voluntary status to [facility] for stabilization of psychiatric symptoms and safety. Patient has signed adult voluntary form and has signed medication consent and is placed in patient's chart. -Medications : Zoloft 100 mg nightly for mood/anxiety, lithium started at 150 mg nightly with plan to increase to 300 mg starting tomorrow night for mood stabilization/suicidal thoughts -Ativan and Haldol PRN for agitation/aggression -Patient was informed of the risks, benefits and side effects of the medications and patient verbally consented to taking the medications. Patient signed med consent form and was placed in chart. Patient was offered medication information and accepted it -Internal Medicine consult to perform medical evaluation and physical. -NRT -nicotine patch -SW on board for discharge planning. Encourage patient to participate in groups to work on coping skills.
--- NOTE | 2024-05-24 16:05 | P.MDCNMH ---
History of Present Illness H&P Date: 05/24/24 This is a pleasant 24-year-old female who presented to the emergency department with increased depression and suicidal ideation. Patient reports she has been feeling a little more depressed lately and had thoughts of suicide. Patient reports she follows with Dr. Reid in the outpatient setting with a history of anxiety, bipolar, depression reports she vapes with nicotine and denies any other illicit drug use or alcohol use. Patient does follow with [facility] outpatient and actually did have an appointment with her psychiatrist and was told to come to the ER for further evaluation. On exam patient is afebrile with no reports of chest pain or shortness of breath. Patient reports to tolerating diet and denies any nausea or vomiting. Labs reviewed with a white count of 6.5, hemoglobin is 12.3, platelets 331, sodium 139 with a potassium of 4.4, BUN 17 with a creatinine 0.79, hemoglobin A1c is 5.1, TSH 3.50, urine showing some mild white count of 13 although patient is denying any pain, burning, or frequency with urination. Patient urine drug screen was positive for benzos of which she does take as needed Xanax and Zoloft, COVID testing was negative. Patient was voluntarily admitted to [facility] for further psychiatric evaluation. REVIEW OF SYSTEMS: CONSTITUTIONAL: No fever, no malaise, reports of fatigue. HEENT: No recent visual problems or hearing problems. Denied any sore throat. CARDIOVASCULAR: No chest pain, orthopnea, PND, no palpitations, no syncope. PULMONARY: No shortness of breath, no cough, no hemoptysis. GASTROINTESTINAL: No diarrhea, no nausea, no vomiting, no abdominal pain. NEUROLOGICAL: No headaches, no weakness, no numbness. HEMATOLOGICAL: Denies any bleeding or petechiae. GENITOURINARY: Denies any burning micturition, frequency, or urgency. MUSCULOSKELETAL/RHEUMATOLOGICAL: Denies any joint pain, swelling, or any muscle pain. ENDOCRINE: Denies any polyuria or polydipsia. The rest of the 14-point review of systems is negative. PHYSICAL EXAMINATION: GENERAL: The patient is alert and oriented x3, appears depressed on exam with flat affect. Well developed, well nourished. HEENT: Pupils are round and equally reacting to light. EOMI. No scleral icterus. No conjunctival pallor. Normocephalic, atraumatic. No pharyngeal erythema. No thyromegaly. CARDIOVASCULAR: S1 and S2 present. No murmurs, rubs, or gallops. PULMONARY: Chest is clear to auscultation, no wheezing or crackles. ABDOMEN: Soft, nontender, nondistended, normoactive bowel sounds. No palpable organomegaly. MUSCULOSKELETAL: No joint swelling or deformity. EXTREMITIES: No cyanosis, clubbing, or pedal edema. NEUROLOGICAL: Gross neurological examination did not reveal any focal deficits. SKIN: No rashes. Assessment: Depression with suicidal ideation History of anxiety/bipolar/depression Vapes with nicotine GI prophylaxis Full code Plan: Patient was voluntarily admitted to [address] unit for further psychiatric evaluation for increased depression with suicidal ideation Patient follows with [facility] outpatient and home medications reviewed and resumed as appropriate Labs reviewed and within normal limits Encouraged increased activity as tolerated with group therapy sessions, compliance with medications, and psychiatric evaluation Thank you kindly for this consultation. Please do not hesitate to contact medicine with questions and concerns The impression and plan of care has been dictated by Brianda Lyons, Nurse Practitioner as directed. Dr. Xiomara MD I have performed a history and examination and MDM of this patient, discussed the same with the dictator, and agree with the dictator's assessment and plan as written ,documented as a scribe. Based on total visit time, I have performed more than 50% of the visit. Past Medical History Past Medical History: No Reported History Additional Past Medical History / Comment(s): Patient's had 1 previous vaginal delivery of baby girl 8 lbs. 1 oz. History of Any Multi-Drug Resistant Organisms: None Reported Past Surgical History: No Surgical Hx Reported Additional Past Surgical History / Comment(s): [place] teeth. Past Anesthesia/Blood Transfusion Reactions: No Reported Reaction Past Psychological History: Anxiety, Bipolar, Depression Smoking Status: Never smoker Past Alcohol Use History: None Reported Past Drug Use History: None Reported - Past Family History Mother Family Medical History: No Reported History Medications and Allergies Home Medications Medication Instructions Recorded Confirmed Type ALPRAZolam [Xanax] 0.25 mg PO DAILY PRN 05/11/24 05/23/24 History Sertraline [Zoloft] 150 mg PO DAILY 05/11/24 05/23/24 History Ondansetron Odt [Zofran Odt] 8 mg PO TID PRN 05/23/24 05/23/24 History Allergies Allergy/AdvReac Type Severity Reaction Status Date / Time No Known Allergies Allergy Verified 05/23/24 17:15 Physical Exam Vitals: Vital Signs Temp Pulse Pulse Resp BP BP Pulse Ox 05/24/24 09:00 97.4 F L 96 120/78 98 05/23/24 21:05 97.6 F 78 16 121/76 99 05/23/24 20:23 74 18 116/79 97 05/23/24 16:10 98.4 F 106 H 17 113/77 100 Intake and Output 05/23/24 05/24/24 05/24/24 22:59 06:59 14:59 Other: Weight 75.495 kg Cranial Nerve Examination - Cranial Nerves Cranial Nerve I- Olfactory: Intact Cranial Nerve II- Optic: Intact Cranial Nerve III- Oculomotor: Intact Cranial Nerve IV- Trochlear: Intact Cranial Nerve V- Trigeminal: Intact Cranial Nerve - Abducens: Intact Cranial Nerve VII- Facial: Intact Cranial Nerve VIII- Auditory: Intact Cranial Nerve IX- Glossopharyngeal: Intact Cranial Nerve X- Vagus: Intact Cranial Nerve XI- Accessory: Intact Cranial Nerve XII- Hypoglossal: Intact Results CBC & Chem 7: 05/24/24 08:13 05/24/24 08:13 Labs: Abnormal Lab Results - Last 24 Hours (Table) 05/23/24 05/23/24 Range/Units 16:30 21:00 Urine Appearance Turbid H (Clear) Urine Protein Trace H (Negative) Ur Leukocyte Esterase Large H (Negative) Urine WBC 13 H (0-5) /hpf Urine Mucus Many H (None) /hpf U Benzodiazepines Scrn Detected H (NotDetected)
[2024-05-24] MEDS: ONDANSETRON ODT 8 MG TAB.RAPDIS PO PRN (21:11)
[2024-05-24] MEDS: LITHIUM CARBONATE 150 MG CAP PO ONE (21:11)
[2024-05-24] MEDS: SERTRALINE 100 MG TAB PO SCH (21:11)
--- NOTE | 2024-05-25 10:24 | P.PN ---
Progress Note - Text Progress Note Date: 05/25/24 Interval history: Patient was seen in the [facility] and was directable and agreeable to speak with contract technical writer. Patient was tearful, stated she had just gotten off the phone with her daughter and that she missed her children. She states having an upcoming spring break trip next week that she is hopeful to attend to, goal oriented. She states her plans on visiting her today during visitations. She has been sleeping well. At this time patient denies any suicidal or homicidal ideations intent or plan. Denies any auditory or visual hallucinations. Patient denies any side effects from the medications and has been compliant with meds. Mental status exam: General Appearance: Patient appears to be stated age is alert, directable, and cooperative. Behavior: No agitated behavior. Patient is calm and directable. She is tearful Speech: Patient's speech is fluent and nonpressured. Mood/Affect: Mood is improving mildly, affect is congruent and constricted. Suicidality/Homicidality: Patient denies having any suicidal or homicidal ideation intent or plan. Perceptions: Patient denies any auditory or visual hallucinations. Though content/process: There is no evidence of any delusional thought content and thought process is linear and goal-directed. Memory and concentration: AOX3, grossly intact for the purposes of this session Judgment and insight: improving mildly Assessment/Plan: Continue with current diagnosis. Patient continues to meet criteria for inpatient psychiatric admission for symptom stabilization and safety. Patient will be maintained on current psychotropic medication regimen. Monitor for medication compliance and for any psychotropic medication side e ffects. Will continue to monitor ongoing response to treatment. Encouraged participation in milieu.
[2024-05-25] MEDS: LITHIUM CARBONATE 300 MG CAP PO SCH (20:37)
--- NOTE | 2024-05-26 10:23 | P.PN ---
Progress Note - Text Progress Note Date: 05/26/24 Interval history: Patient was seen in group and was directable and agreeable to speak with sports writer. Patient displays bright affect, future oriented. She states sleeping well overnight and expressed no concerns. She mentions a history of anxiety related to being nausea and thus she has been taking Zofran as a precaution however this was discouraged given the possibility of prolonging QTc as patient is also on psychotropic medications. She was encouraged to refrain from taking this tonight to see if she even has nausea which she agreed. At this time patient denies any suicidal or homicidal ideations intent or plan. Denies any auditory or visual hallucinations. Patient denies any side effects from the medications and has been compliant with meds. Mental status exam: General Appearance: Patient appears to be stated age is alert, directable, and cooperative. Behavior: No agitated behavior. Patient is calm and directable Speech: Patient's speech is fluent and nonpressured. Mood/Affect: Mood is improving mildly, affect is congruent and full range, reactive Suicidality/Homicidality: Patient denies having any suicidal or homicidal ideation intent or plan. Perceptions: Patient denies any auditory or visual hallucinations. Though content/process: There is no evidence of any delusional thought content and thought process is linear and goal-directed. Memory and concentration: AOX3, grossly intact for the purposes of this session Judgment and insight: improving mildly Assessment/Plan: Continue with current diagnosis. Patient continues to meet criteria for inpatient psychiatric admission for symptom stabilization and safety. Patient will be maintained on current psychotropic medication regimen. Monitor for medication compliance and for any psychotropic medication side effects. Will continue to monitor ongoing response to treatment. Encouraged participation in milieu.
[2024-05-27 08:36] VITALS: RESP 16
--- NOTE | 2024-05-27 10:24 | P.PN ---
Progress Note - Text Progress Note Date: 05/27/24 Interval history: Patient was seen in group and was directable and agreeable to speak with keno writer / runner. Patient claims that she is feeling a bit better today, claims that her mood and anxiety been improving. States that she feels more future oriented today, states that she is tolerating the lithium fairly well. Not reporting any side effects at this time. States that she is sleeping about 9 hours a night. Has been going to some groups, eating fairly well. Has been speaking with her over the phone. At this time patient denies any suicidal or homicidal ideations intent or plan. Denies any auditory or visual hallucinations. Patient denies any side effects from the medications and has been compliant with meds. Mental status exam: General Appearance: Patient appears to be stated age is alert, directable, and cooperative. She appears brighter today Behavior: No agitated behavior. Patient is calm and directable Speech: Patient's speech is fluent and nonpressured. Mood/Affect: Mood is improving mildly, affect is congruent and full range, reactive, improving mildly Suicidality/Homicidality: Patient denies having any suicidal or homicidal ideation intent or plan. Perceptions: Patient denies any auditory or visual hallucinations. Though content/process: There is no evidence of any delusional thought content and thought process is linear and goal-directed. Memory and concentration: AOX3, grossly intact for the purposes of this session Judgment and insight: improving mildly Assessment/Plan: Continue with current diagnosis. Patient continues to meet criteria for inpatient psychiatric admission for symptom stabilization and safety. Patient will be maintained on current psychotropic medication regimen. Monitor for medication compliance and for any psychotropic medication side effects. Will continue to monitor ongoing response to treatment. Encouraged participation in milieu. Will obtain a lithium level tomorrow morning. Likely discharge tomorrow back home
[2024-05-28 07:56] VITALS: BP 115/73; PULSE 72; TEMP 98.7
--- NOTE | 2024-05-28 10:31 | P.DS ---
Providers Date of admission: 05/23/24 19:21 Expected date of discharge: 05/28/24 Attending physician: Ruben Duong MD Consults: 05/23/24 19:36 Consult Physician Routine Consulting Provider: Pranav Valdez Consult Reason/Comments: H&P Do you want consulting provider notified?: Yes Primary care physician: Cihp Reid - Discharge Diagnosis(es) (1) Bipolar disorder current episode depressed Current Visit: Yes Status: Acute Priority: High (2) Anxiety disorder Current Visit: Yes Status: Acute Priority: High (3) Nicotine dependence Current Visit: Yes Status: Acute Priority: Low Hospital Course: Admission HPI: Admission note was completed by insurance underwriter sales "Patient is a 24-year-old female, currently she has 2 kids she lives in a house she lives with her 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 Patient presented to the hospital yesterday for depression and suicidal ideations, she was evaluated by EPS nurse and according to note "Pt brought self to ER for having SI after having a verbal altercation with her . Pt was tearful and spoke about how she wants to get better and doesn't want to feel angry. Pt spoke about her therapy and setting goals for this week and how she is reading a book that her doctor recommended. Pt states that she has struggled with "high highs and low lows" for years. She states that "I love my so much and then I hate him". Pts states that she has not been nice to him and she yells and screams at him and uses "low blows". He told her today that he is numb and over it all. This led to her making suicidal comments. They both spoke about the option of couples therapy. Pt denies any hx of suicide attempts and denies any plan, access, or intent. Pt was able to contract for safety. Pt is goal and future oriented. Pt DENIES HI, Hallucinations, or delusions. RN spoke with pt about the use of healthy coping skills and examples of that, pt was also provided with a list of coping skills. They deny access to any guns besides a pellet gun which they were informed to lock up. Pt denies substance use. 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 Pt states she is eating slightly more than normal, she is sleeping but feels tired, she is caring for her ADLS. 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 She sees a therapist once a week, a rehabilitation caseworker monthly, and a prescriber every 2 months. Pt spoke about her prescriber offering the option of DBT. She states that she would be willing to do so. RN emailed [facility] treatment team and [facility] team for follow up tomorrow, 05/12/24. Pt is not a current harm to self or others. RN informed pt to return to the ER if her symptoms are worsen. F/U with [facility] recommended. 05/23/24: Upon assessment pt was tearful pt states that [facility] did reach out about starting a new group therapy but that does not start until June 06. She states that since the last ER visit she has had increased depression. Increased SI with now a plan to OD on her Zoloft. Pt states that she was googling how much zoloft would she have to take to . Pt feels now she is unable to be left alone and worries she will kill herself. She admits to increase in negative thoughts and being more labile the last few days. Pt is not eating much and not caring for her basic needs. She is sleeping okay. She mentioned that she was on Vrylar up until about Mar and since being off she has noticed her decline. She states that she takes her Zoloft daily. Pt states since 05/11/24 she has not drank any etoh. Unable to safety plan with pt. Pt is a risk to her self." Patient was seen today agreeable to speak to insurance underwriter sales in the office. She claims that yesterday she "could not get out of bed" and states that she was feeling fairly depressed. Claims that she was having "crappy thoughts" and relayed that they were mainly thoughts of self-harm suicidal thoughts plan to overdose on her medications. Claims that she has had similar episodes in the past over 2 and half years ago after her child was born. Claims that she went to a therapist appointment and they told her to come to the hospital. States that the suicidal thoughts have been happening for the past couple of days, claims that she has been having increase in depression increase in anxiety. States that she was fairly tearful, did relay that she has episodes of mood changes and likely hypomanic episodes where she feels like she has a lot of energy does not need to sleep which typically last 2 to 3 days. She claims that her sleep is improving, appetite is fair. Patient denies any suicidal or homicidal ideations intent or plan. At this time patient denies any auditory or visual hallucinations. Patient denies any current flight of ideas racing thoughts and increased in goal directed behavior. Patient admits to using nicotine vape products. Denies any other recreational drug use" Hospital course: Upon admission to the unit patient was directable and agreeable to commence treatment and signed adult voluntary form. Patient was initially tearful, depressed and anxious however with time and treatment patient got along well with other patients on the unit and followed unit protocol. Patient was compliant with the medications and denied any side effects throughout hospital course. Patient was started on Zoloft decreased down to a dose of 100 mg nightly for mood/anxiety, lithium increased to dose of 300 mg nightly for mood stabilization/suicidal thoughts. Patient spoke of her stressors and engaged in therapy both group/activity therapy. Patient was also seen by medical team for history and physical exam. Throughout the course of the hospitalization patient gradually improved with regards to mood, anxiety, suicidal thoughts, mood lability, sleep and became more future oriented with improved insight and judgment. On the day of discharge patient denied any suicidal or homicidal ideations intent or plan denied any auditory or visual hallucinations. Patient endorsed wanting to live for their health and family. The patient denied any access to guns or weapons. Patient denied any paranoia and did not endorse any delusions. Patient does not have a significant history of substance abuse and was counseled on abstaining from all substances including alcohol and marijuana. Patient was also counseled on the medications and need for regular compliance and was encouraged to follow-up with their outpatient appointment for mental health and also for primary care. Prior to discharge a family meeting will be arranged by high school social studies tutor to answer any questions and ensure safety upon discharge incuding making sure that guns/weapons are either removed from the home or locked away. Patient states that she has no access to guns and weapons at home. Mental status exam: General Appearance: Patient appears to be stated age is alert, pleasant, and cooperative. Patient is in no acute distress and has improved hygiene and grooming Behavior: Patient is calmly seated without any agitated behavior. Speech: Patient's speech is fluent and nonpressured. Mood/Affect: Patient reports their mood is "better", affect is congruent and euthymic. Suicidality/Homicidality: Patient denies having any suicidal or homicidal ideation intent or plan. Perceptions: Patient denies any auditory or visual hallucinations. Though content/process: There is no evidence of any delusional thought content and thought process is linear and goal-directed. More future oriented Memory and concentration: AOX3, grossly intact for the purposes of this session. Can spell "WORLD" backwards correctly. Judgment and insight: improved with guarded prognosis Impression: Bipolar disorder, current episode depressed Anxiety disorder unspecified Nicotine dependence Plan: -Continue with discharge today as patient has improved and stabilized psychiatrically and is not currently an imminent threat to themself and/or others. -Continue medications: [place] 300 mg nightly for mood stabilization/suicidal thoughts. Zoloft 100 mg nightly for mood/anxiety. Still awaiting patient's lithium level to be drawn prior to discharge. -Patient was counseled on the need for medication compliance and appropriate follow-up at mental health and also primary care for medical issues. Patient verbalized understanding and agreed. -Social work to arrange for and conduct family meeting to ensure safety upon discharge and answer any questions/concerns. also to ensure safe home envi ronment that guns/weapons are either removed from the home or locked away. Social work also to arrange for patients follow up appointments for psychiatric care along with follow up with primary care provider. -Patient counseled on abstaining from recreational drugs and marijuana and alcohol. Was informed/educated on the adverse effects on their physical and mental health. Patient verbally agreed and understood. -Patient was instructed to return to the hospital or seek immediate medical care if their psychiatric or medical symptoms do worsen or reoccur. Allergies Allergy/AdvReac Type Severity Reaction Status Date / Time No Known Allergies Allergy Verified 05/23/24 17:15 Laboratory Results WBC 6.5 k/uL (3.8-10.6) 05/24/24 08:13 RBC 4.50 m/uL (3.80-5.40) 05/24/24 08:13 Hgb 12.3 gm/dL (11.4-16.0) 05/24/24 08:13 Hct 39.1 % (34.0-46.0) 05/24/24 08:13 MCV 86.9 fL (80.0-100.0) 05/24/24 08:13 MCH 27.4 pg (25.0-35.0) 05/24/24 08:13 MCHC 31.5 g/dL (31.0-37.0) 05/24/24 08:13 RDW 13.5 % (11.5-15.5) 05/24/24 08:13 Plt Count 331 k/uL (150-450) 05/24/24 08:13 MPV 7.8 05/24/24 08:13 Neutrophils % 69 % 05/24/24 08:13 Lymphocytes % 25 % 05/24/24 08:13 Monocytes % 4 % 05/24/24 08:13 Eosinophils % 1 % 05/24/24 08:13 Basophils % 0 % 05/24/24 08:13 Neutrophils # 4.5 k/uL (1.3-7.7) 05/24/24 08:13 Lymphocytes # 1.6 k/uL (1.0-4.8) 05/24/24 08:13 Monocytes # 0.3 k/uL (0-1.0) 05/24/24 08:13 Eosinophils # 0.0 k/uL (0-0.7) 05/24/24 08:13 Basophils # 0.0 k/uL (0-0.2) 05/24/24 08:13 Hypochromasia Slight 05/24/24 08:13 Sodium 139 mmol/L (137-145) 05/24/24 08:13 Potassium 4.4 mmol/L (3.5-5.1) 05/24/24 08:13 Chloride 101 mmol/L (98-107) 05/24/24 08:13 Carbon Dioxide 28 mmol/L (22-30) 05/24/24 08:13 Anion Gap 10 mmol/L 05/24/24 08:13 BUN 17 mg/dL (7-17) 05/24/24 08:13 Creatinine 0.79 mg/dL (0.52-1.04) 05/24/24 08:13 Est GFR (CKD-EPI)AfAm >90 (>60 ml/min/1.73 sqM) 05/24/24 08:13 Est GFR (CKD-EPI)NonAf >90 (>60 ml/min/1.73 sqM) 05/24/24 08:13 Glucose 92 mg/dL (74-99) 05/24/24 08:[address] Glu mg/dL 100 mg/dL 05/24/24 08:13 Hemoglobin A1c 5.1 % (<=6.0) 05/24/24 08:13 Calcium 9.6 mg/dL (8.4-10.2) 05/24/24 08:13 Total Bilirubin 0.7 mg/dL (0.2-1.3) 05/24/24 08:13 AST 20 U/L (14-36) 05/24/24 08:13 ALT 16 U/L (4-34) 05/24/24 08:13 Alkaline Phosphatase 76 U/L (38-126) 05/24/24 08:13 Total Protein 8.0 g/dL (6.3-8.2) 05/24/24 08:13 Albumin 4.7 g/dL (3.5-5.0) 05/24/24 08:13 TSH 3.570 mIU/L (0.465-4.680) 05/24/24 08:13 Urine Color Yellow 05/23/24 21:00 Urine Appearance Turbid (Clear) H 05/23/24 21:00 Urine pH 5.5 (5.0-8.0) 05/23/24 21:00 Ur Specific [place] 1.028 (1.001-1.035) 05/23/24 21:00 Urine Protein Trace (Negative) H 05/23/24 21:00 Urine Glucose (UA) Negative (Negative) 05/23/24 21:00 Urine Ketones Negative (Negative) 05/23/24 21:00 Urine Blood Negative (Negative) 05/23/24 21:00 Urine Nitrite Negative (Negative) 05/23/24 21:00 Urine Bilirubin Negative (Negative) 05/23/24 21:00 Urine Urobilinogen <2.0 mg/dL (<2.0) 05/23/24 21:00 Ur Leukocyte Esterase Large (Negative) H 05/23/24 21:00 Urine WBC 13 /hpf (0-5) H 05/23/24 21:00 Ur Squamous Epith Cells 2 /hpf (0-4) 05/23/24 21:00 Urine Mucus Many /hpf (None) H 05/23/24 21:00 Urine HCG, Qual Not Detected (Not Detectd) 05/23/24 21:00 Urine Opiates Screen Not Detected (NotDetected) 05/23/24 16:30 Ur Oxycodone Screen Not Detected (NotDetected) 05/23/24 16:30 Urine Methadone Screen Not Detected (NotDetected) 05/23/24 16:30 Ur Barbiturates Screen Not Detected (NotDetected) 05/23/24 16:30 U Tricyclic Antidepress Not Detected (NotDetected) 05/23/24 16:30 Ur Phencyclidine Scrn Not Detected (NotDetected) 05/23/24 16:30 Ur Amphetamines Screen Not Detected (NotDetected) 05/23/24 16:30 U Methamphetamines Scrn Not Detected (NotDetected) 05/23/24 16:30 U Benzodiazepines Scrn Detected (NotDetected) H 05/23/24 16:30 Urine Cocaine Screen Not Detected (NotDetected) 05/23/24 16:30 U Marijuana (THC) Screen Not Detected (NotDetected) 05/23/24 16:30 SARS-CoV-2 (PCR) Not Detected (Not Detectd) 05/23/24 18:13 Vital Signs Temp 98.7 F 05/28/24 07:55 Pulse 72 05/28/24 07:55 Resp 16 05/27/24 20:54 BP 115/73 05/28/24 07:55 Pulse Ox 100 05/28/24 07:55 FiO2 Patient Condition at Discharge: Stable Plan - Discharge Summary Discharge Rx Participant: No New Discharge Prescriptions: New Nicotine 14Mg/24Hr Patch [Habitrol] 1 patch TRANSDERM DAILY 14 Days #14 patch [place] Carbonate 300 mg PO HS 14 Days #14 cap Sertraline [Zoloft] 100 mg PO HS 14 Days #14 tab Continue Ondansetron Odt [Zofran ODT] 8 mg PO TID PRN PRN Reason: Nausea Discontinued Sertraline [Zoloft] 150 mg PO DAILY ALPRAZolam [Xanax] 0.25 mg PO DAILY PRN PRN Reason: Anxiety Discharge Medication List Ondansetron Odt [Zofran ODT] 8 mg PO TID PRN 05/23/24 [History] [place] Carbonate 300 mg PO HS 14 Days #14 cap 05/28/24 [Rx] Nicotine 14Mg/24Hr Patch [Habitrol] 1 patch TRANSDERM DAILY 14 Days #14 patch 05/28/24 [Rx] Sertraline [Zoloft] 100 mg PO HS 14 Days #14 tab 05/28/24 [Rx] Follow up Appointment(s)/Referral(s): [facility] [Outside] - 05/30/24 1:00 pm (05/30 @ 13:00 [place] 06/07 @ 09:30 Dr Aldana) Chip Reid MD [Primary Care Provider] - 1-2 days Patient Instructions/Handouts: How to Stop Smoking (DC), Depression (DC) Activity/Diet/Wound Care/Special Instructions: [facility] Discharge Info Avoid the use of street drugs and alcohol. Take all medications as prescribed. When you are in need of refills on your medications, please contact your outpatient medical provider and/or outpatient psychiatrist. Please go to your scheduled outpatient appointments for aftercare treatment. If symptoms return or become worse, call the crisis line at or and/or visit the nearest emergency room for assistance. National Suicide and Crisis Lifeline - call or text 039 Discharge Disposition: HOME SELF-CARE
== END 2024-05-28 14:04 | disposition home or self-care (01) | DRG 753 ==
LOC: EC 15:21 → 3MHU 19:21
PROVIDERS: ADMIT Psychiatry & Neurology Psychiatry; ATTEND Psychiatry & Neurology Psychiatry
DX: F31.30 Bipolar disorder, current episode depressed, mild or moderate severity, unspecified (principal); R45.851 Suicidal ideations; F41.9 Anxiety disorder, unspecified; F17.290 Nicotine dependence, other tobacco product, uncomplicated; Z79.899 Other long term (current) drug therapy
CPT/HCPCS: 80053; 80178; 80306; 81001; 81025; 82075; 83036; 84443; 85025; 87635; 99285

== ENCOUNTER 2024-07-17 00:39 | Emergency (ER) | payer OTHER ==
[2024-07-17 00:50] VITALS: RESP 18; TEMP 98
--- NOTE | 2024-07-17 00:53 | ED ---
General Adult HPI - General Chief complaint: Chest Pain Stated complaint: Anxiety Time Seen by Provider: 07/17/24 00:40 Source: patient, EMS Mode of arrival: EMS - History of Present Illness Initial comments: Dictation was produced using [employer] dictation software. please excuse any grammatical, word or spelling errors. Chief Complaint: 24-year-old female with chest burning History of Present Illness: Patient 24-year-old female she presents emergency department with chest burning states that whenever she takes medications lying down starts to burn her esophagus. States that she has esophageal burning from her mid chest to her upper back. Patient states she was having difficulty tolerating liquids. Patient was try to take her Zoloft like she normally does every night. States that she feels like there is a pill stuck in her throat. The ROS documented in this emergency department record has been reviewed and confirmed by me. Those systems with pertinent positive or negative responses have been documented in the HPI. All other systems are other negative and/or noncontributory. - Related Data Home Medications Medication Instructions Recorded Confirmed Ondansetron Odt [Zofran ODT] 8 mg PO TID PRN 05/23/24 05/23/24 Previous Rx's Medication Instructions Recorded [place] Carbonate 300 mg PO HS 14 Days #14 cap 05/28/24 Nicotine 14Mg/24Hr Patch [Habitrol] 1 patch TRANSDERM DAILY 14 Days 05/28/24 #14 patch Sertraline [Zoloft] 100 mg PO HS 14 Days #14 tab 05/28/24 Allergies Allergy/AdvReac Type Severity Reaction Status Date / Time No Known Allergies Allergy Verified 07/17/24 00:45 Review of Systems ROS Statement: Those systems with pertinent positive or pertinent negative responses have been documented in the HPI. ROS Other: All systems not noted in ROS Statement are negative. Past Medical History Past Medical History: No Reported History Additional Past Medical History / Comment(s): Patient's had 1 previous vaginal delivery of baby girl 8 lbs. 1 oz. History of Any Multi-Drug Resistant Organisms: None Reported Past Surgical History: No Surgical Hx Reported Additional Past Surgical History / Comment(s): [place] teeth. Past Anesthesia/Blood Transfusion Reactions: No Reported Reaction Past Psychological History: Anxiety, Bipolar, Depression Smoking Status: Vaper Past Alcohol Use History: None Reported Past Drug Use History: None Reported - Past Family History Mother Family Medical History: No Reported History General Exam - General Exam Comments Initial Comments: PHYSICAL EXAM: General Impression: Alert and oriented x3, not in acute distress HEENT: Normocephalic atraumatic, extra-ocular movements intact, pupils equal and reactive to light bilaterally, mucous membranes moist. Cardiovascular: Heart regular rate and rhythm Chest: Able to complete full sentences, no retractions, no tachypnea Abdomen: abdomen soft, non-tender, non-distended, no organomegaly Musculoskeletal: Pulses present and equal in all extremities, no peripheral edema Motor: no focal deficits noted Neurological: CN II-XII grossly intact, no focal motor or sensory deficits noted Skin: Intact with no visualized rashes Psych: Normal affect and mood Course Vital Signs 07/17/24 07/17/24 00:40 02:34 Temperature 98.0 F Pulse Rate 67 68 Respiratory 18 18 Rate Blood Pressure 137/87 135/86 O2 Sat by Pulse 100 98 Oximetry EKG Findings - EKG Comments: EKG Findings:: My EKG interpretation: Ventricular rate 62, sinus rhythm, NV 190, cures 91, QTc 419. No NV prolongation, no QTC prolongation, no ST or T-wave changes noted. Overall, this EKG is unremarkable Medical Decision Making - Medical Decision Making Was pt. sent in by a medical professional or institution (, PA, MEDICAL SUPPLY TECHNICIAN, urgent care, hospital, or skilled nursing...) When possible be specific @ -No Did you speak to anyone other than the patient for history (EMS, parent, family, police, friend...)? What history was obtained from this source @ -No Did you review nursing and triage notes (agree or disagree)? Why? @ -I reviewed and agree with nursing and triage notes Were old charts reviewed (outside hosp., previous admission, EMS record, old EKG, old radiological studies, urgent care reports/EKG's, skilled nursing records)? Report findings @ -No old charts were reviewed Differential Diagnosis (chest pain, altered mental status, abdominal pain women, abdominal pain men, vaginal bleeding, musculoskeletal, weakness, fever, dyspnea, syncope, headache, dizziness, GI bleed, back pain, seizure, CVA, palpatations, mental health)? @ -Pill esophagitis, foreign body esophageal impaction, chemical esophagitis, GERD EKG interpreted by me (3pts min.). @ -None done X-rays interpreted by me (1pt min.). @ -Chest x-ray is nonacute CT interpreted by me (1pt min.). @ -None done U/S interpreted by me (1pt. min.). @ -None done What testing was considered but not performed or refused? (CT, X-rays, U/S, labs)? Why? @ -None What meds were considered but not given or refused? Why? @ -None Was smoking cessation discussed for >3mins.? @ -No Were there social determinants of health that impacted care today? How? (Homelessness, low income, unemployed, alcoholism, drug addiction, transportation, low edu. Level, literacy, decrease access to med. care, snf, rehab)? @ -No Was there de-escalation of care discussed even if they declined (Discuss DNR or withdrawal of care, Hospice)? DNR status @ -No What co-morbidities impacted this encounter? (DM, HTN, Smoking, COPD, CAD, Cancer, CVA, ARF, Chemo, Hep., AIDS, mental health diagnosis, sleep apnea, morbid obesity)? @ -None Was patient admitted / discharged? Hospital course, mention meds given and route, prescriptions, significant lab abnormalities, going to OR and other pertinent info. @ -24-year-old female with foreign body sensation in the esophagus. States that she feels like a pill is stuck in her throat. She is able to tolerate liquids. GI cocktail was provided patient still significantly symptomatic. We do not have GI coverage at her facility today. Patient be transferred to [facility] for further care. Accepting physician is Dr. Garcia Did you discuss the management of the patient with other professionals (professionals i.e. , PA, MEDICAL SUPPLY TECHNICIAN, lab, RT, psych nurse, psychiatric social worker supervisor, manager ambulatory, teacher, horticultural technical officer, assistant case manager)? Give summary @ -See above Was critical care preformed (if so, how long)? @ -No Undiagnosed new problem with uncertain prognosis? @ -No Drug Therapy requiring intensive monitoring for toxicity (Heparin, Nitro, Insulin, Cardizem)? @ -No Were any procedures done? @ -No Diagnosis/symptom? Acute, or Chronic, or Acute on Chronic? Uncomplicated (without systemic symptoms) or Complicated (systemic symptoms)? @ -Esophageal foreign body Side effects of treatment? @ -No Exacerbation, Progression, or Severe Exacerbation? @ -No Poses a threat to life or bodily function? How? (Chest pain, [place], [place], pneumonia, PE, COPD, DKA, ARF, appy, cholecystitis, CVA, Diverticulitis, Homicidal, Suicidal, threat to staff... and all critical care pts) @ -yes - Lab Data Lab Results 07/17/24 Range/Units 01:20 Urine HCG, Qual Not Detected (Not Detectd) Disposition Clinical Impression: Esophageal foreign body Disposition: OTHER INSTITUTION NOT DEFINED Condition: Fair Is patient prescribed a controlled substance at d/c from ED?: No Referrals: Chip Reid MD [Primary Care Provider] - 1-2 days Time of Disposition: 02:07 - Out of Hospital Transfer - Req. Specs Out of Hospital Transfer - Requested Specifics: Other Emergency Center ([facility])
[2024-07-17] MEDS: LIDOCAINE VISCOUS 2% 15 ML CUP PO ONE (01:01)
[2024-07-17] MEDS: HYOSCYAMINE SULFATE 0.125 MG TAB PO ONE (01:01)
[2024-07-17] MEDS: MAG HYDROX/AL HYDROX/SIMETH 30 ML CUP PO PRN (01:50)
[2024-07-17 02:35] VITALS: BP 135/86; PULSE 68
--- NOTE | 2024-07-17 03:08 | XR ---
EXAM: XR Chest, 2 Views CLINICAL HISTORY: ITS.REASON XR Reason: reflux TECHNIQUE: Frontal and lateral views of the chest. COMPARISON: No relevant prior studies available. FINDINGS: Lungs: Unremarkable. No consolidation. Pleural space: Unremarkable. No pneumothorax. Heart: Unremarkable. No cardiomegaly. Mediastinum: Unremarkable. Bones/joints: Unremarkable. IMPRESSION: No consolidation.
== END 2024-07-17 02:53 | disposition other institution (70) ==
LOC: EC 00:39
DX: T18.198A Other foreign object in esophagus causing other injury, initial encounter (principal); W44.8XXA Other foreign body entering into or through a natural orifice, initial encounter; F17.290 Nicotine dependence, other tobacco product, uncomplicated
CPT/HCPCS: 71046; 81025; 93005; 99285